=== PATIENT | male | born 2005 | race African-American/Black ===

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

== ENCOUNTER 2023-01-24 18:13 | Emergency (ER) | payer BC, OTHER ==
[2023-01-24 18:54] VITALS: BP 107/56; PULSE 63; RESP 16; BMI 22.3
[2023-01-24] MEDS ORDERED: levETIRAcetam 500 MG/5 ML INJECTION VIAL IVPB ONE ×2 (19:20→19:33)
[2023-01-24 20:06] LABS: BASO % 0.4 % (0-2.0); EOS % 1.1 % (0-4.5); HEMOGLOBIN 14.1 GM/dL (11.7-16.9); LYMPH % 17.4 % (8-40); MCH 29.3 pg (25.7-33.7); MCHC 33.5 g/dl (32.0-35.9); MEAN CELL VOLUME 87.3 fl (80-96); MEAN PLT VOLUME 8.6 fl (7.5-11.1); MONO % 5.9 % (3.8-10.2); NEUT % 75.2 % (42.8-82.8); PLATELET COUNT 176 10^3/uL (134-434); RBC 4.82 M/mm3 (4.00-5.60); RDW 13.6 % (11.9-15.9); WHITE BLOOD COUNT 10.8 K/mm3 (4.0-10.0)
[2023-01-24 20:24] LABS: CHLORIDE 108 mmol/L (98-107); POTASSIUM 3.8 mmol/L (3.5-5.1); SODIUM 140 mmol/L (136-145)
[2023-01-24] MEDS ORDERED: ACETAMINOPHEN 500 MG TABLET (FP) PO ONE (20:25)
[2023-01-24 20:26] LABS: ALBUMIN 3.9 g/dl (3.4-5.0); ANION GAP 6 mmol/L (4-13); BLOOD UREA NITROGEN 11.2 mg/dL (7-18); CALCIUM 8.7 mg/dL (8.5-10.1); CO2 26 mmol/L (21-32); GLUCOSE,RANDOM 90 mg/dL (74-106)
[2023-01-24 20:29] LABS: CREATININE 1.1 mg/dL (0.55-1.3); SGPT/ALT 12 U/L (13-61)
[2023-01-24 20:30] LABS: SGOT/AST 10 U/L (15-37)
[2023-01-24 20:31] LABS: BILIRUBIN,TOTAL 0.2 mg/dL (0.2-1); TOT PROT 7.2 g/dl (6.4-8.2)
[2023-01-24 20:32] LABS: ALK PHOS 58 U/L (45-117)
[2023-01-24] MEDS ORDERED: ACETAMINOPHEN 500 MG TABLET (FP) ONE (20:36)
[2023-01-24 21:04] LABS: URINE APPEARANCE CLEAR; URINE BILIRUBIN NEGATIVE (NEGATIVE); URINE COLOR YELLOW; URINE GLUCOSE (UA) NEGATIVE (NEGATIVE); URINE KETONE NEGATIVE (NEGATIVE); URINE LEUK ESTERASE NEGATIVE (NEGATIVE); URINE NITRITE NEGATIVE (NEGATIVE); URINE PROTEIN NEGATIVE (NEGATIVE); URINE UROBILINOGEN 0.2 mg/dL (0.2-1.0)
[2023-01-24 21:23] LABS: PHENCYCLIDINE,URINE NEGATIVE (NEGATIVE); URINE BENZODIAZEPINES NEGATIVE (NEGATIVE)
[2023-01-24 21:24] LABS: COCAINE, UR NEGATIVE (NEGATIVE); METHADONE, UR NEGATIVE (NEGATIVE); URINE AMPHETAMINES NEGATIVE (NEGATIVE); URINE BARBITURATES NEGATIVE (NEGATIVE)
[2023-01-24 21:34] LABS: OPIATES, URI NEGATIVE (NEGATIVE)
[2023-01-24 22:54] VITALS: TEMP 98.1
== END 2023-01-24 22:35 | disposition home or self-care (01) ==
LOC: JER 18:13
PROC: 3E033GC Introduction of Other Therapeutic Substance into Peripheral Vein, Percutaneous Approach (ICD-10-PCS; principal; 2023-01-24)
DX: R56.9 Unspecified convulsions (principal)
CPT/HCPCS: 36415; 70450-TC; 80053; 80307; 81003; 82550; 82553; 83605; 85025; 87086; 99284-25

== ENCOUNTER 2023-03-03 22:54 | Observation (INO) | payer BC ==
[2023-03-03 23:01] VITALS: BMI 22.1
[2023-03-03] MEDS ORDERED: levETIRAcetam 500 MG/5 ML INJECTION VIAL IVPB ONE ×2 (23:03→23:21)
[2023-03-03] MEDS ORDERED: SODIUM CHLORIDE 1,000 ML IV STA (23:03)
[2023-03-03 23:42] LABS: BASO % 0.8 % (0-2.0); EOS % 4.6 % (0-4.5); HEMOGLOBIN 14.6 GM/dL (11.7-16.9); LYMPH % 29.4 % (8-40); MCH 29.8 pg (25.7-33.7); MCHC 33.9 g/dl (32.0-35.9); MEAN CELL VOLUME 87.8 fl (80-96); MEAN PLT VOLUME 8.7 fl (7.5-11.1); MONO % 7.1 % (3.8-10.2); NEUT % 58.1 % (42.8-82.8); PLATELET COUNT 159 10^3/uL (134-434); RBC 4.89 M/mm3 (4.00-5.60); RDW 13.4 % (11.9-15.9); WHITE BLOOD COUNT 6.1 K/mm3 (4.0-10.0)
[2023-03-04 00:01] LABS: POTASSIUM 3.9 mmol/L (3.5-5.1)
[2023-03-04 00:03] LABS: CALCIUM 8.9 mg/dL (8.5-10.1)
[2023-03-04 00:04] LABS: ALBUMIN 3.5 g/dl (3.4-5.0)
[2023-03-04 00:08] LABS: BILIRUBIN,TOTAL 0.3 mg/dL (0.2-1); TOT PROT 6.9 g/dl (6.4-8.2)
[2023-03-04 07:38] LABS: HEMATOCRIT 40.6 % (35.4-49); HEMOGLOBIN 13.9 GM/dL (11.7-16.9); MCHC 34.2 g/dl (32.0-35.9); MEAN CELL VOLUME 87.7 fl (80-96); MEAN PLT VOLUME 9.5 fl (7.5-11.1); PLATELET COUNT 155 10^3/uL (134-434); RBC 4.63 M/mm3 (4.00-5.60); RDW 13.8 % (11.9-15.9); WHITE BLOOD COUNT 7.9 K/mm3 (4.0-10.0)
[2023-03-04 07:39] VITALS: RESP 18
[2023-03-04 07:59] LABS: POTASSIUM 4.1 mmol/L (3.5-5.1)
[2023-03-04 08:03] LABS: ALBUMIN 3.2 g/dl (3.4-5.0); BLOOD UREA NITROGEN 10.6 mg/dL (7-18); CALCIUM 8.6 mg/dL (8.5-10.1); MAGNESIUM 2.1 mg/dL (1.8-2.4)
[2023-03-04 08:06] LABS: CREATININE 0.9 mg/dL (0.55-1.3); PHOSPHOROUS 3.6 mg/dL (2.5-4.9)
[2023-03-04 08:08] LABS: BILIRUBIN,TOTAL 0.4 mg/dL (0.2-1); TOT PROT 6.3 g/dl (6.4-8.2)
[2023-03-04 08:23] LABS: PH,URINE 5.5 (5.0-8.0); URINE APPEARANCE CLEAR; URINE BILIRUBIN NEGATIVE (NEGATIVE); URINE COLOR YELLOW; URINE GLUCOSE (UA) NEGATIVE (NEGATIVE); URINE KETONE NEGATIVE (NEGATIVE); URINE LEUK ESTERASE NEGATIVE (NEGATIVE); URINE NITRITE NEGATIVE (NEGATIVE); URINE PROTEIN TRACE (NEGATIVE); URINE UROBILINOGEN 0.2 mg/dL (0.2-1.0)
[2023-03-04] MEDS ORDERED: ENOXAPARIN NA (PORCINE) 40 MG/0.4 ML DISP.SYRIN SQ SCH (10:00)
[2023-03-04] MEDS ORDERED: levETIRAcetam 500 MG TABLET (FP) PO SCH (10:00)
[2023-03-04 14:25] VITALS: BP 120/57; PULSE 56; TEMP 98.8
== END 2023-03-04 15:21 | disposition home or self-care (01) ==
LOC: JER 22:54 → JERBED 03-04 01:49
PROVIDERS: ADMIT Internal Medicine; ATTEND Internal Medicine
PROC: 3E023GC Introduction of Other Therapeutic Substance into Muscle, Percutaneous Approach (ICD-10-PCS; principal; 2023-03-04)
PROC: 3E033GC Introduction of Other Therapeutic Substance into Peripheral Vein, Percutaneous Approach (ICD-10-PCS; 2023-03-04)
PROC: 3E0337Z Introduction of Electrolytic and Water Balance Substance into Peripheral Vein, Percutaneous Approach (ICD-10-PCS; 2023-03-04)
DX: R56.9 Unspecified convulsions (principal); F12.90 Cannabis use, unspecified, uncomplicated; Z29.89 Encounter for other specified prophylactic measures; Z91.148 Patient's other noncompliance with medication regimen for other reason
CPT/HCPCS: 36415; 70450-TC; 80053; 80307; 81003; 82550; 83735; 84100; 85025; 85027; 87086; 93005; 93010; 96361; 96372; 96374; 99285-25; G0378

== ENCOUNTER 2024-03-05 21:12 | Emergency (ER) | payer BC ==
[2024-03-05 21:43] VITALS: BP 117/63; PULSE 90; RESP 18; TEMP 98.1; BMI 21.6
[2024-03-05] MEDS ORDERED: levETIRAcetam 500 MG/5 ML INJECTION VIAL IVPB ONE (21:56)
[2024-03-05] MEDS ORDERED: ACETAMINOPHEN 325 MG TABLET (FP) ONE (21:58)
[2024-03-05] MEDS: levETIRAcetam 500 MG/5 ML INJECTION VIAL IVPB ONE (22:24)
[2024-03-05] MEDS: ACETAMINOPHEN 325 MG TABLET (FP) PO ONE (22:24)
== END 2024-03-05 23:55 | disposition home or self-care (01) ==
LOC: JER 21:12
PROC: 3E033GC Introduction of Other Therapeutic Substance into Peripheral Vein, Percutaneous Approach (ICD-10-PCS; principal; 2024-03-05)
DX: G40.909 Epilepsy, unspecified, not intractable, without status epilepticus (principal)
CPT/HCPCS: 36415; 80177; 99284-25

== ENCOUNTER 2024-05-02 07:24 | Emergency (ER) | payer BC ==
[2024-05-02] MEDS ORDERED: levETIRAcetam 500 MG TABLET (FP) PO ONE (07:53)
[2024-05-02] MEDS ORDERED: ACETAMINOPHEN 325 MG TABLET (FP) ONE (07:53)
[2024-05-02] MEDS: levETIRAcetam 500 MG TABLET (FP) PO ONE (07:55)
[2024-05-02] MEDS: ACETAMINOPHEN 500 MG TABLET (FP) PO ONE (07:55)
[2024-05-02] MEDS: LACTATED RINGERS SOLUTION 1000 ML INFUS.BAG IV ONE (07:55)
[2024-05-02 08:13] LABS: ABSOLUTE IMMATURE GRANULOCYTES 0.03 x10^3/uL (0.0-0.031); BASOPHILS # 0.05 x10^3/uL (0.01-0.08); EOSINOPHILS # 0.33 x10^3/uL (0.04-0.54); HEMATOCRIT 45.1 % (40.1-51.0); HEMOGLOBIN 14.8 g/dL (13.7-17.5); MCHC 32.8 g/dl (32.3-36.5); MEAN CELL VOLUME 90.9 fl (79.0-92.2); MEAN PLT VOLUME 10.5 fl (9.4-12.4); MONOCYTE # 0.47 x10^3/uL (0.30-0.82); MONOCYTE % 7.1 % (5.3-12.2); PLATELET COUNT # 167 x10^3/uL (163-337); RDW 12.7 % (11.9-15.3)
[2024-05-02 08:32] LABS: POTASSIUM 4.3 mmol/L (3.5-5.1)
[2024-05-02 08:34] LABS: ALBUMIN 3.7 g/dl (3.4-5.0); BLOOD UREA NITROGEN 13.6 mg/dL (7-18); MAGNESIUM 2.5 mg/dL (1.8-2.4)
[2024-05-02 08:37] VITALS: RESP 18; TEMP 98.5; BMI 22.2
[2024-05-02 08:37] LABS: CREATININE 1.1 mg/dL (0.55-1.3)
[2024-05-02 08:39] LABS: BILIRUBIN,TOTAL 0.5 mg/dL (0.2-1)
[2024-05-02 09:59] VITALS: BP 120/74; PULSE 54
[2024-05-02 12:14] LABS: HIV INTERPRETATION NEGATIVE (NEGATIVE)
[2024-05-02 12:15] LABS: HCV DIAGNOSTIC IN-HOUSE W/RFLX NON-REACTIVE (NONREACTIVE)
== END 2024-05-02 09:59 | disposition home or self-care (01) ==
LOC: JER 07:24
DX: G40.909 Epilepsy, unspecified, not intractable, without status epilepticus (principal)
CPT/HCPCS: 36415; 80053; 80177; 83735; 85025; 86803; 87389; 99283-25